=== PATIENT | male | born 1990 | race Caucasian/White ===

== ENCOUNTER 2016-06-03 20:51 | Emergency (ER) | payer OTHER ==
[~2016-06-03] VITALS: Ht 167.6 cm; Wt 77.3 kg
[2016-06-03 20:53] VITALS: TEMP 98.1
[2016-06-03] MEDS ORDERED: PERCOCET 325 MG1 TA2 PO (21:35)
[2016-06-03 22:51] VITALS: BP 119/90; PULSE 80
== END 2016-06-03 22:53 | disposition home or self-care (01) ==
LOC: COL.ER 20:51
DX: S82.852A Displaced trimalleolar fracture of left lower leg, initial encounter for closed fracture (principal); X50.1XXA Overexertion from prolonged static or awkward postures, initial encounter; Y93.75 Activity, martial arts
CPT/HCPCS: J2405